=== PATIENT | female | born 1955 | race Caucasian/White ===

== ENCOUNTER 2019-12-30 02:21 | Emergency (ER) | payer MEDICARE, BC ==
[~2019-12-30] VITALS: Ht 162.6 cm; Wt 77.3 kg
[2019-12-30 02:21] VITALS: Ht 162.6 cm; Wt 77.3 kg
[2019-12-30] MEDS ORDERED: PERCOCET 7.5/321 TAB PO (02:24)
[2019-12-30] MEDS ORDERED: BLOOD PRESSURE (02:26)
[2019-12-30] MEDS ORDERED: NEXIUM20 MG PO (02:27)
[2019-12-30] MEDS ORDERED: ANXIETY (02:27)
[2019-12-30 02:57] LABS: HEMATOCRIT 39.2 % (36.0-48.0); HEMOGLOBIN 12.6 g/dL (12-16); LYMPHOCYTES 5.2 % (15-50); MCH 28.8 pg (26.0-34.0); MCHC 32.1 g/dL (31.0-37.0); MCV 89.7 fL (80.0-100.0); MEAN PLATELET VOLUME 8.3 fL (7.4-10.4); NEUTROPHILS 85.2 % (40-80); PLATELET COUNT 306 10x3/uL (130-400); RBC 4.37 10x6/uL (4.00-5.40); RDW 11.9 % (11.5-14.5); WBC 11.7 10x3/uL (4.8-10.8)
[2019-12-30 02:58] LABS: CALC OSMOLALITY 281 mosm/kg (275-300); CARBON DIOXIDE 28.1 mmol/L (21.0-32.0); CHLORIDE - SERUM 103 mmol/L (98-107); CREATININE - SERUM 0.8 mg/dL (0.6-1.3); GLUCOSE 196 mg/dL (74-106); POTASSIUM - SERUM 3.9 mmol/L (3.5-5.1); SODIUM 138 mmol/L (136-145); UREA NITROGEN 15 mg/dL (7-18); eGFR NON AFRICAN AMERICAN 76 mL/min (90-120)
[2019-12-30 03:08] LABS: BILIRUBIN NEGATIVE (NEGATIVE); GLUCOSE NEGATIVE (NEGATIVE); KETONE NEGATIVE (NEGATIVE); NITRITE NEGATIVE (NEGATIVE); SPECIFIC GRAVITY 1.025 (1.005-1.020); UROBILINOGEN NORMAL (NORMAL)
[2019-12-30 03:08] LABS: ALBUMIN 3.4 g/dL (3.4-5.0); ALKALINE PHOSPHATASE 104 U/L (30-120); ALT (SGPT) 21 U/L (10-68); BILIRUBIN - TOTAL 0.39 mg/dL (0.2-1.3); LIPASE 66 U/L (73-393); PROTEIN - SERUM 7.4 g/dL (6.4-8.2); TROPONIN-I < 0.017 ng/mL (0.000-0.060)
[2019-12-30 03:14] LABS: BACTERIA FEW /hpf (NEGATIVE); EPITHELIAL CELLS 0-5 /hpf (0-5); RED CELLS - URINE 0-5 /hpf (0-5); WHITE CELLS - URINE 0-5 /hpf (NEGATIVE)
[2019-12-30] MEDS ORDERED: LEVAQUIN750 MG PO (05:03)
[2019-12-30 05:20] VITALS: BP 138/67
== END 2019-12-30 05:20 | disposition home or self-care (01) ==
LOC: D.ER 02:21
PROVIDERS: Emergency Medicine
DX: J90 Pleural effusion, not elsewhere classified (principal); E11.9 Type 2 diabetes mellitus without complications; I10 Essential (primary) hypertension; R10.9 Unspecified abdominal pain